=== PATIENT | male | born 1980 | race Caucasian/White ===

== ENCOUNTER 2023-12-10 15:25 | Emergency (ER) | payer OTHER ==
[2023-12-10 15:44] VITALS: RESP 19; BMI 26.6
[2023-12-10 17:24] LABS: BASO % 0.7 % (0-2.0); EOS % 1.6 % (0-4.5); HEMATOCRIT 40.9 % (35.4-49); HEMOGLOBIN 13.7 GM/dL (11.7-16.9); LYMPH % 19.3 % (8-40); MCH 30.1 pg (25.7-33.7); MCHC 33.4 g/dl (32.0-35.9); MEAN CELL VOLUME 90.3 fl (80-96); MEAN PLT VOLUME 6.8 fl (7.5-11.1); MONO % 7.9 % (3.8-10.2); NEUT % 70.5 % (42.8-82.8); PLATELET COUNT 371 10^3/uL (134-434); RBC 4.53 M/mm3 (4.00-5.60); RDW 13.7 % (11.9-15.9); WHITE BLOOD COUNT 8.3 K/mm3 (4.0-10.0)
[2023-12-10 17:45] LABS: CHLORIDE 103 mmol/L (98-107); POTASSIUM 4.6 mmol/L (3.5-5.1); SODIUM 137 mmol/L (136-145)
[2023-12-10 17:47] LABS: CALCIUM 8.8 mg/dL (8.5-10.1)
[2023-12-10 17:48] LABS: ALBUMIN 2.7 g/dl (3.4-5.0); ANION GAP 6 mmol/L (4-13); BLOOD UREA NITROGEN 13.9 mg/dL (7-18); CO2 28 mmol/L (21-32); GLUCOSE,RANDOM 94 mg/dL (74-106); MAGNESIUM 2.2 mg/dL (1.8-2.4)
[2023-12-10 17:51] LABS: CREATININE 0.6 mg/dL (0.55-1.3); PHOSPHOROUS 3.4 mg/dL (2.5-4.9); SGOT/AST 47 U/L (15-37); SGPT/ALT 44 U/L (13-61)
[2023-12-10 17:52] LABS: BILIRUBIN,TOTAL 0.4 mg/dL (0.2-1); TOT PROT 6.7 g/dl (6.4-8.2)
[2023-12-10 17:54] LABS: ALK PHOS 118 U/L (45-117)
[2023-12-10 20:06] VITALS: BP 138/76; PULSE 62; TEMP 97.7
== END 2023-12-10 21:46 | disposition short-term general hospital (02) ==
LOC: JER 15:25
DX: R22.33 Localized swelling, mass and lump, upper limb, bilateral (principal); T33.521A Superficial frostbite of right hand, initial encounter; T33.522A Superficial frostbite of left hand, initial encounter; F11.90 Opioid use, unspecified, uncomplicated; L03.011 Cellulitis of right finger; L03.012 Cellulitis of left finger; Z20.822 Contact with and (suspected) exposure to COVID-19
CPT/HCPCS: 0241U-QW; 36415; 70450-TC; 73130-TC-LT-FY; 73130-TC-RT-FY; 80053; 80307; 83605; 83735; 84100; 84484; 85025; 85651; 86140; 87040; 87635; 87811; 93005; 93010; 99285-25